=== PATIENT | male | born 1975 | race Two or more races ===

== ENCOUNTER 2017-07-14 07:15 | Emergency (ER) | payer MEDICAID ==
[~2017-07-14] VITALS: Ht 167.6 cm; Wt 68.5 kg
[~2017-07-14 07:15] MED LIST: CEPH500C PO; IBUP800T24 PO; MUPI2OIN2 TOP
[2017-07-14 09:06] VITALS: BP 140/76
== END 2017-07-14 09:59 | disposition home or self-care (01) ==
LOC: ER 07:15
DX: S30.850D Superficial foreign body of lower back and pelvis, subsequent encounter (principal); X58.XXXD Exposure to other specified factors, subsequent encounter
CPT/HCPCS: 73502

== ENCOUNTER 2017-11-18 04:02 | Emergency (ER) | payer MEDICAID ==
[~2017-11-18] VITALS: Ht 172.7 cm; Wt 67.6 kg
[2017-11-18 04:37] VITALS: BP 123/75
== END 2017-11-18 05:27 | disposition left against medical advice (07) ==
LOC: ER 04:13
DX: M79.661 Pain in right lower leg (principal); Z53.21 Procedure and treatment not carried out due to patient leaving prior to being seen by health care provider

== ENCOUNTER 2018-01-10 00:20 | Emergency (ER) | payer MEDICAID ==
[~2018-01-10] VITALS: Ht 172.7 cm; Wt 66.7 kg
[2018-01-10 03:40] VITALS: BP 116/71
[2018-01-10] MEDS ORDERED: HYDROcodone-ACET 10/325MG TAB PO ONE (05:30)
== END 2018-01-10 05:45 | disposition home or self-care (01) ==
LOC: ER 00:20
DX: S30.0XXA Contusion of lower back and pelvis, initial encounter (principal); F17.210 Nicotine dependence, cigarettes, uncomplicated; F12.10 Cannabis abuse, uncomplicated; V29.9XXA Motorcycle rider (driver) (passenger) injured in unspecified traffic accident, initial encounter; Y93.55 Activity, bike riding; Y92.89 Other specified places as the place of occurrence of the external cause; Y99.8 Other external cause status
CPT/HCPCS: 72220

== ENCOUNTER 2019-12-09 01:15 | Emergency (ER) | payer MEDICAID ==
[~2019-12-09] VITALS: Ht 170.2 cm; Wt 67.3 kg
[2019-12-09 05:20] VITALS: BP 109/72
== END 2019-12-09 05:36 | disposition home or self-care (01) ==
LOC: ER 01:16
DX: L24.5 Irritant contact dermatitis due to other chemical products (principal); F17.210 Nicotine dependence, cigarettes, uncomplicated; Z59.0 Homelessness

== ENCOUNTER 2020-11-25 04:14 | Emergency (ER) | payer MEDICAID ==
[~2020-11-25] VITALS: Ht 167.6 cm; Wt 67.6 kg
[~2020-11-25 04:14] MED LIST changes: -IBUP800T24 PO; +IBUP800T27 PO
[2020-11-25 04:31] VITALS: BP 129/85
== END 2020-11-25 09:44 | disposition left against medical advice (07) ==
LOC: ER 04:14
DX: M54.5 Low back pain (principal); Z53.21 Procedure and treatment not carried out due to patient leaving prior to being seen by health care provider

== ENCOUNTER 2021-01-19 05:18 | Emergency (ER) | payer MEDICAID ==
[~2021-01-19] VITALS: Ht 170.2 cm; Wt 65.8 kg
[2021-01-19 07:47] VITALS: BP 103/60
== END 2021-01-19 08:15 | disposition home or self-care (01) ==
LOC: ER 05:18
DX: S90.31XA Contusion of right foot, initial encounter (principal); F17.210 Nicotine dependence, cigarettes, uncomplicated; Z79.1 Long term (current) use of non-steroidal anti-inflammatories (NSAID); Z79.899 Other long term (current) drug therapy; W20.8XXA Other cause of strike by thrown, projected or falling object, initial encounter; Y93.89 Activity, other specified; Y92.89 Other specified places as the place of occurrence of the external cause; Y99.8 Other external cause status
CPT/HCPCS: 73630

== ENCOUNTER 2021-02-20 05:05 | Emergency (ER) | payer MEDICAID ==
[~2021-02-20] VITALS: Ht 170.2 cm; Wt 64.9 kg
[2021-02-20 05:56] VITALS: BP 128/75
[2021-02-20] MEDS ORDERED: KETOROLAC TROMETH 60MG/2ML VIAL IM ONE (06:15)
[2021-02-20] MEDS ORDERED: traMADol HCL 50 MG TAB PO ONE (06:15)
[2021-02-20] MEDS ORDERED: methylPREDNISolone SOD SUCC 125 MG/2 ML VL IM ONE (06:15)
[2021-02-20] MEDS ORDERED: NAPROXEN 500 MG TAB PO ONE (06:15)
== END 2021-02-20 06:26 | disposition home or self-care (01) ==
LOC: ER 05:05
DX: S33.5XXA Sprain of ligaments of lumbar spine, initial encounter (principal); M54.16 Radiculopathy, lumbar region; M79.10 Myalgia, unspecified site; F17.210 Nicotine dependence, cigarettes, uncomplicated; Z79.1 Long term (current) use of non-steroidal anti-inflammatories (NSAID); Z79.2 Long term (current) use of antibiotics; Z79.899 Other long term (current) drug therapy; W01.0XXA Fall on same level from slipping, tripping and stumbling without subsequent striking against object, initial encounter; Y93.89 Activity, other specified; Y92.89 Other specified places as the place of occurrence of the external cause; Y99.8 Other external cause status
CPT/HCPCS: 72100

== ENCOUNTER 2021-03-08 20:01 | Emergency (ER) | payer MEDICAID ==
[~2021-03-08] VITALS: Ht 172.7 cm; Wt 69.9 kg
[2021-03-09 00:18] VITALS: BP 108/66
== END 2021-03-09 00:23 | disposition home or self-care (01) ==
LOC: ER 20:02
DX: R51.9 Headache, unspecified (principal); F17.210 Nicotine dependence, cigarettes, uncomplicated; Z79.899 Other long term (current) drug therapy

== ENCOUNTER 2021-03-25 06:09 | Emergency (ER) | payer MEDICAID ==
[~2021-03-25] VITALS: Ht 170.2 cm; Wt 69.9 kg
[2021-03-25 07:48] LABS: Basophils # (auto) 0 10 ^3/uL (0-0.2); Basophils % (auto) 0.3 % (0.0-2.0); Eosinophils # (auto) 0.2 10 ^3/uL (0-0.8); Eosinophils % (auto) 2.1 % (0.0-7.0); Hematocrit 40.4 % (41.0-53.0); Lymphocytes # (auto) 2.3 10 ^3/uL (0.4-5.4); Lymphocytes % (auto) 29.5 % (10.0-50.0); Mean Corpuscular Hemoglobin 30.7 pg (28.0-32.0); Mean Corpuscular Hgb Conc. 34.5 g/dL (32.0-36.0); Monocytes # (auto) 0.6 10 ^3/uL (0-1.3); Neutrophils # (auto) 4.8 10 ^3/uL (1.6-8.6); Neutrophils % (auto) 60.1 % (37.0-80.0); Nucleated Red Blood Cells % 0.1 %; Red Blood Cells 4.54 10^6/uL (4.5-5.90); Red Cell Distribution Width 14.2 % (11.8-14.3); White Blood Cell 7.9 10^3/uL (4.4-10.8)
[2021-03-25 07:58] LABS: Chloride 108 mmol/L (98-107); Sodium 139 mmol/L (136-145)
[2021-03-25 08:03] LABS: Alanine Aminotransferase 23 U/L (16-61); Albumin 3.7 g/dL (3.4-5.0); Anion Gap 7 (5-15); Aspartate Aminotransferase 19 U/L (15-37); BUN/Creatinine Ratio 11.9; Blood Urea Nitrogen 10 mg/dL (7-18); Calcium 8.8 mg/dL (8.5-10.1); Carbon Dioxide 24 mmol/L (21-32); GFR African American 127 mL/min; GFR Non-African American 105 mL/min; Glucose 89 mg/dL (74-106)
[2021-03-25 08:07] LABS: Alkaline Phosphatase 71 U/L (45-117); Bilirubin, Total 0.8 mg/dL (0.2-1.0); Total Protein 7.3 g/dL (6.4-8.2)
[2021-03-25 10:09] VITALS: BP 136/86
== END 2021-03-25 10:14 | disposition home or self-care (01) ==
LOC: ER 06:09
DX: G89.4 Chronic pain syndrome (principal); F41.9 Anxiety disorder, unspecified; F17.210 Nicotine dependence, cigarettes, uncomplicated; Z79.899 Other long term (current) drug therapy
CPT/HCPCS: 36415; 80053; 84484; 85025

== ENCOUNTER 2021-04-18 07:20 | Emergency (ER) | payer MEDICAID ==
[~2021-04-18] VITALS: Ht 167.6 cm; Wt 68.9 kg
[2021-04-18 08:30] LABS: Urine Bacteria NONE SEEN /hpf (None Seen); Urine Blood 1+ /uL (Negative); Urine Hyaline Cast FEW /lpf (0 - 2); Urine Mucus FEW (None Seen); Urine Specific Gravity 1.018 (1.001-1.035); Urine WBC 1 /hpf (0 - 3)
[2021-04-18 08:48] VITALS: BP 120/88
[2021-04-18] MEDS ORDERED: KETOROLAC TROMETH 60MG/2ML VIAL IM ONE (09:00)
== END 2021-04-18 09:14 | disposition home or self-care (01) ==
LOC: ER 07:20
DX: M54.41 Lumbago with sciatica, right side (principal); R32 Unspecified urinary incontinence; F17.210 Nicotine dependence, cigarettes, uncomplicated; F12.10 Cannabis abuse, uncomplicated
CPT/HCPCS: 81001; 96372; 99283; J1885

== ENCOUNTER 2021-04-26 07:37 | Emergency (ER) | payer MEDICAID ==
[~2021-04-26] VITALS: Ht 170.2 cm; Wt 70.3 kg
[2021-04-26 07:42] VITALS: BP 134/86
== END 2021-04-26 08:33 | disposition home or self-care (01) ==
LOC: ER 07:37
DX: R32 Unspecified urinary incontinence (principal); M54.9 Dorsalgia, unspecified; Z53.21 Procedure and treatment not carried out due to patient leaving prior to being seen by health care provider

== ENCOUNTER 2021-05-28 04:52 | Emergency (ER) | payer MEDICAID ==
[~2021-05-28] VITALS: Ht 170.2 cm; Wt 68.0 kg
[2021-05-28 04:59] VITALS: BP 107/67
== END 2021-05-28 09:21 | disposition left against medical advice (07) ==
LOC: ER 04:52
DX: R35.0 Frequency of micturition (principal); R32 Unspecified urinary incontinence; Z53.21 Procedure and treatment not carried out due to patient leaving prior to being seen by health care provider

== ENCOUNTER 2021-07-24 18:22 | Emergency (ER) | payer MEDICAID ==
[~2021-07-24] VITALS: Ht 175.3 cm; Wt 72.6 kg
[2021-07-24 18:22] VITALS: BP 123/94
[2021-07-24] MEDS ORDERED: ACETAMINOPHEN 325 MG TAB PO ONE (19:00)
[2021-07-24] MEDS ORDERED: ONDANSETRON ODT 4 MG TAB PO ONE (19:15)
== END 2021-07-24 22:17 | disposition home or self-care (01) ==
LOC: ER 18:22
DX: G44.209 Tension-type headache, unspecified, not intractable (principal); F17.210 Nicotine dependence, cigarettes, uncomplicated; F12.10 Cannabis abuse, uncomplicated; F15.10 Other stimulant abuse, uncomplicated
CPT/HCPCS: 70450; 99284; Q0162

== ENCOUNTER 2022-05-19 01:42 | Emergency (ER) | payer MEDICAID ==
[~2022-05-19] VITALS: Ht 170.2 cm; Wt 67.0 kg
[2022-05-19 01:42] VITALS: BP 116/77
== END 2022-05-19 03:39 | disposition left against medical advice (07) ==
LOC: ER 01:42
DX: R51.9 Headache, unspecified (principal); Z53.21 Procedure and treatment not carried out due to patient leaving prior to being seen by health care provider

== ENCOUNTER 2022-05-29 01:04 | Emergency (ER) | payer MEDICAID ==
[~2022-05-29] VITALS: Ht 170.2 cm; Wt 69.4 kg
[2022-05-29 01:23] VITALS: BP 127/82
[2022-05-29] MEDS ORDERED: KETOROLAC TROMETH 60MG/2ML VIAL IM ONE (02:30)
== END 2022-05-29 02:43 | disposition home or self-care (01) ==
LOC: ER 01:07
DX: R51.9 Headache, unspecified (principal); F17.210 Nicotine dependence, cigarettes, uncomplicated; F12.10 Cannabis abuse, uncomplicated; Y08.89XA Assault by other specified means, initial encounter; Y93.89 Activity, other specified; Y92.89 Other specified places as the place of occurrence of the external cause; Y99.8 Other external cause status
CPT/HCPCS: 96372; 99283; J1885

== ENCOUNTER 2022-06-05 12:52 | Emergency (ER) | payer MEDICAID ==
[~2022-06-05] VITALS: Ht 170.2 cm; Wt 68.8 kg
[2022-06-05 14:08] VITALS: BP 135/72
[2022-06-05] MEDS ORDERED: METH500T22 PO (15:04)
[2022-06-05] MEDS ORDERED: IBUP800T27 PO (15:04)
== END 2022-06-05 15:24 | disposition home or self-care (01) ==
LOC: ER 12:52
DX: G89.29 Other chronic pain (principal); S02.2XXD Fracture of nasal bones, subsequent encounter for fracture with routine healing; Z76.0 Encounter for issue of repeat prescription; X58.XXXD Exposure to other specified factors, subsequent encounter

== ENCOUNTER 2022-12-11 09:20 | Emergency (ER) | payer MEDICAID ==
[~2022-12-11] VITALS: Ht 172.7 cm; Wt 65.8 kg
[~2022-12-11 09:20] MED LIST changes: +IBUP-1456 PO; -IBUP800T27 PO; +METH-1181 PO
[2022-12-11 09:39] VITALS: BP 124/81
== END 2022-12-11 12:44 | disposition left against medical advice (07) ==
LOC: ER 09:20
DX: R10.9 Unspecified abdominal pain (principal); Z53.21 Procedure and treatment not carried out due to patient leaving prior to being seen by health care provider; W22.8XXA Striking against or struck by other objects, initial encounter; Y93.89 Activity, other specified; Y92.89 Other specified places as the place of occurrence of the external cause; Y99.8 Other external cause status

== ENCOUNTER 2022-12-20 10:23 | Emergency (ER) | payer MEDICAID ==
[~2022-12-20] VITALS: Ht 167.6 cm; Wt 65.4 kg
[2022-12-20 10:23] VITALS: BP 117/72
[2022-12-20 11:48] LABS: Urine Bacteria FEW /hpf (None Seen); Urine Blood TRACE /uL (Negative); Urine Mucus FEW (None Seen); Urine Specific Gravity 1.033 (1.001-1.035); Urine Sperm PRESENT /hpf (None Seen); Urine WBC 1 /hpf (0 - 3)
[2022-12-20 12:04] LABS: Alcohol, Urine < 3.0 mg/dL (0-10); Amphetamine Screen, Urine POSITIVE (NEGATIVE); Barbiturate Scree,Urine NEGATIVE (NEGATIVE); Benzodiazephine Screen, Urine NEGATIVE (NEGATIVE); Cannabinoid Screen, Urine POSITIVE (NEGATIVE); Cocaine Screen, Urine NEGATIVE (NEGATIVE); Opiate Scree,Urine NEGATIVE (NEGATIVE); Phencyclidine Screen, Urine NEGATIVE (NEGATIVE)
== END 2022-12-20 12:03 | disposition home or self-care (01) ==
LOC: ER 10:23
DX: K59.00 Constipation, unspecified (principal); K76.89 Other specified diseases of liver; F41.9 Anxiety disorder, unspecified; F32.9 Major depressive disorder, single episode, unspecified; F17.210 Nicotine dependence, cigarettes, uncomplicated; F12.90 Cannabis use, unspecified, uncomplicated; Z79.899 Other long term (current) drug therapy
CPT/HCPCS: 74176; 80307; 81001

== ENCOUNTER → 2022-12-24 | Emergency (ER) | payer MEDICAID ==
[~2022-12-24] VITALS: Ht 167.6 cm; Wt 67.4 kg
[2022-12-24 20:38] VITALS: BP 119/81; PULSE 92; RESP 18; O2SAT 100
== END | disposition left against medical advice (07) ==
LOC: ER 20:35
DX: R10.32 Left lower quadrant pain (principal); R11.2 Nausea with vomiting, unspecified; F41.9 Anxiety disorder, unspecified; F32.9 Major depressive disorder, single episode, unspecified; F17.210 Nicotine dependence, cigarettes, uncomplicated; F12.10 Cannabis abuse, uncomplicated

== ENCOUNTER 2022-12-31 12:05 | Emergency (ER) | payer MEDICAID ==
[~2022-12-31] VITALS: Ht 170.2 cm; Wt 67.1 kg
[2022-12-31 12:51] VITALS: BP 121/74; PULSE 71; RESP 18; TEMP 97.9; O2SAT 98
[2022-12-31] MEDS ORDERED: IBUP1TAB5 PO (14:01)
[2022-12-31] MEDS ORDERED: ZOFR4T PO ×2 (14:01→14:03)
[2022-12-31] MEDS ORDERED: IBU600T PO (14:03)
== END 2022-12-31 14:25 | disposition home or self-care (01) ==
LOC: ER 12:05
DX: R51.9 Headache, unspecified (principal); T73.0XXA Starvation, initial encounter; F41.9 Anxiety disorder, unspecified; F32.9 Major depressive disorder, single episode, unspecified; F17.210 Nicotine dependence, cigarettes, uncomplicated; F15.90 Other stimulant use, unspecified, uncomplicated; X58.XXXA Exposure to other specified factors, initial encounter
CPT/HCPCS: 70450

== ENCOUNTER 2023-01-18 14:42 | Emergency (ER) | payer MEDICAID ==
[~2023-01-18] VITALS: Ht 167.6 cm; Wt 65.3 kg
[~2023-01-18 14:42] MED LIST changes: +IBU600T PO; +IBUP1TAB5 PO; +ZOFR4T PO
[2023-01-18 16:03] VITALS: BP 120/74; PULSE 119; RESP 18; TEMP 98.1; O2SAT 97
== END 2023-01-18 15:54 | disposition left against medical advice (07) ==
LOC: ER 14:42
DX: M79.671 Pain in right foot (principal); Z53.21 Procedure and treatment not carried out due to patient leaving prior to being seen by health care provider

== ENCOUNTER 2023-02-01 00:45 | Emergency (ER) | payer MEDICAID ==
[~2023-02-01 00:45] MED LIST changes: +IBUP-1454 PO
[2023-02-01] MEDS ORDERED: IBUP1TAB5 PO (02:20)
[2023-02-01] MEDS ORDERED: IBUPROFEN 600 MG TAB PO ONE (02:30)
[2023-02-01 02:39] VITALS: BP 110/70; PULSE 99; RESP 20; TEMP 97.4; O2SAT 98
== END 2023-02-01 02:52 | disposition home or self-care (01) ==
LOC: ER 00:45
DX: S92.314A Nondisplaced fracture of first metatarsal bone, right foot, initial encounter for closed fracture (principal); F17.210 Nicotine dependence, cigarettes, uncomplicated; F12.10 Cannabis abuse, uncomplicated; Z59.00 Homelessness unspecified; Y04.2XXA Assault by strike against or bumped into by another person, initial encounter; Y93.89 Activity, other specified; Y92.89 Other specified places as the place of occurrence of the external cause; Y99.8 Other external cause status
CPT/HCPCS: 73630

== ENCOUNTER 2023-02-09 07:09 | Emergency (ER) | payer MEDICAID ==
[~2023-02-09] VITALS: Ht 170.2 cm; Wt 66.0 kg
[2023-02-09 07:09] VITALS: BP 137/99; PULSE 99; RESP 19; O2SAT 100
[2023-02-10] MEDS ORDERED: CLIN300C70 PO (07:19)
[2023-02-10] MEDS ORDERED: NAPR-1334 PO (07:19)
== END 2023-02-09 07:36 | disposition left against medical advice (07) ==
LOC: ER 07:09
DX: F99 Mental disorder, not otherwise specified (principal); Z53.21 Procedure and treatment not carried out due to patient leaving prior to being seen by health care provider

== ENCOUNTER 2023-02-10 03:44 | Emergency (ER) | payer MEDICAID ==
[~2023-02-10] VITALS: Ht 170.2 cm; Wt 61.0 kg
[2023-02-10 03:44] VITALS: BP 128/79; PULSE 86; RESP 18; O2SAT 99
[2023-02-10] MEDS ORDERED: TETANUS-DIPTH-ACEL PERTUSSIS 0.5ML SYR Tdap IM ONE (07:15)
[2023-02-10] MEDS ORDERED: CLIN300C70 PO (07:19)
[2023-02-10] MEDS ORDERED: NAPR-1334 PO (07:19)
== END 2023-02-10 08:37 | disposition left against medical advice (07) ==
LOC: ER 03:44
DX: S06.0X0A Concussion without loss of consciousness, initial encounter (principal); S00.33XA Contusion of nose, initial encounter; F17.210 Nicotine dependence, cigarettes, uncomplicated; F12.10 Cannabis abuse, uncomplicated; Z59.00 Homelessness unspecified; Y08.89XA Assault by other specified means, initial encounter; Y93.89 Activity, other specified; Y92.89 Other specified places as the place of occurrence of the external cause; Y99.8 Other external cause status
CPT/HCPCS: 70450; 70486; 90715

== ENCOUNTER 2023-02-10 23:21 | Emergency (ER) | payer MEDICAID ==
[~2023-02-10] VITALS: Ht 170.2 cm; Wt 61.4 kg
[~2023-02-10 23:21] MED LIST changes: +CLIN300C70 PO; +NAPR-1334 PO
[2023-02-11 00:35] VITALS: BP 116/84; PULSE 83; RESP 18; O2SAT 96
== END 2023-02-11 04:14 | disposition left against medical advice (07) ==
LOC: ER 23:24
DX: R11.0 Nausea (principal); H53.8 Other visual disturbances; Z53.21 Procedure and treatment not carried out due to patient leaving prior to being seen by health care provider; W22.8XXA Striking against or struck by other objects, initial encounter; Y93.89 Activity, other specified; Y92.89 Other specified places as the place of occurrence of the external cause; Y99.8 Other external cause status

== ENCOUNTER 2023-02-17 15:20 | Emergency (ER) | payer MEDICAID ==
[~2023-02-17] VITALS: Ht 167.6 cm; Wt 61.4 kg
[2023-02-17 15:53] VITALS: BP 128/77; PULSE 110; RESP 20; O2SAT 98
== END 2023-02-17 20:21 | disposition left against medical advice (07) ==
LOC: ER 15:20
DX: R10.2 Pelvic and perineal pain (principal); Z53.21 Procedure and treatment not carried out due to patient leaving prior to being seen by health care provider

== ENCOUNTER 2023-03-03 18:29 | Emergency (ER) | payer MEDICAID ==
[~2023-03-03] VITALS: Ht 170.2 cm; Wt 67.8 kg
[2023-03-03 18:40] VITALS: BP 113/87; PULSE 105; RESP 18; O2SAT 97
== END 2023-03-04 22:23 | disposition left against medical advice (07) ==
LOC: ER 18:29
DX: R51.9 Headache, unspecified (principal); R11.0 Nausea; Z53.21 Procedure and treatment not carried out due to patient leaving prior to being seen by health care provider; Y08.89XA Assault by other specified means, initial encounter; Y93.89 Activity, other specified; Y92.89 Other specified places as the place of occurrence of the external cause; Y99.8 Other external cause status

== ENCOUNTER 2023-03-05 01:30 | Emergency (ER) | payer MEDICAID ==
[~2023-03-05] VITALS: Ht 170.2 cm; Wt 68.7 kg
[2023-03-05 01:36] VITALS: BP 126/78; PULSE 95; RESP 16; O2SAT 99
[2023-03-05] MEDS ORDERED: KETOROLAC TROMETH 60MG/2ML VIAL IM ONE (03:45)
== END 2023-03-05 02:53 | disposition left against medical advice (07) ==
LOC: ER 01:32
DX: M79.18 Myalgia, other site (principal); F29 Unspecified psychosis not due to a substance or known physiological condition; R10.12 Left upper quadrant pain; F17.210 Nicotine dependence, cigarettes, uncomplicated; F12.10 Cannabis abuse, uncomplicated; F14.10 Cocaine abuse, uncomplicated; Z59.00 Homelessness unspecified

== ENCOUNTER 2023-03-24 03:30 | Emergency (ER) | payer MEDICAID ==
[~2023-03-24] VITALS: Ht 170.2 cm; Wt 64.6 kg
[2023-03-24 04:10] VITALS: BP 124/80; PULSE 88; RESP 20; TEMP 98.3
[2023-03-24] MEDS ORDERED: IBUP-1454 PO (06:30)
[2023-03-24] MEDS ORDERED: TRAM50TA2 PO (06:30)
[2023-03-24] MEDS ORDERED: KETOROLAC TROMETH 60MG/2ML VIAL IM ONE (06:30)
[2023-03-24 07:06] VITALS: O2SAT 99
== END 2023-03-24 07:23 | disposition home or self-care (01) ==
LOC: ER 03:30
DX: S40.011A Contusion of right shoulder, initial encounter (principal); S20.212A Contusion of left front wall of thorax, initial encounter; F17.210 Nicotine dependence, cigarettes, uncomplicated; Z59.00 Homelessness unspecified; Z79.2 Long term (current) use of antibiotics; Z79.1 Long term (current) use of non-steroidal anti-inflammatories (NSAID); Z79.899 Other long term (current) drug therapy; W18.39XA Other fall on same level, initial encounter; Y93.89 Activity, other specified; Y92.89 Other specified places as the place of occurrence of the external cause; Y99.8 Other external cause status
CPT/HCPCS: 71101; 73030; 96372; 99284; J1885

== ENCOUNTER 2023-03-28 10:19 | Emergency (ER) | payer MEDICAID ==
[~2023-03-28] VITALS: Ht 170.2 cm; Wt 64.5 kg
[~2023-03-28 10:19] MED LIST changes: +TRAM50TA2 PO
[2023-03-28 10:56] VITALS: BP 111/78; PULSE 98; RESP 20; O2SAT 97
== END 2023-03-28 13:22 | disposition left against medical advice (07) ==
LOC: ER 10:19
DX: R10.84 Generalized abdominal pain (principal); R11.2 Nausea with vomiting, unspecified; F17.210 Nicotine dependence, cigarettes, uncomplicated; F12.10 Cannabis abuse, uncomplicated; F14.10 Cocaine abuse, uncomplicated; Z59.00 Homelessness unspecified

== ENCOUNTER 2023-04-12 10:05 | Emergency (ER) | payer MEDICAID ==
[~2023-04-12] VITALS: Ht 170.2 cm; Wt 66.6 kg
[2023-04-12 10:16] VITALS: BP 117/81; PULSE 118; RESP 16; O2SAT 99
== END 2023-04-12 16:14 | disposition left against medical advice (07) ==
LOC: ER 10:05
DX: R07.81 Pleurodynia (principal); Z53.21 Procedure and treatment not carried out due to patient leaving prior to being seen by health care provider

== ENCOUNTER 2023-07-21 23:23 | Emergency (ER) | payer MEDICAID ==
[~2023-07-21] VITALS: Ht 170.2 cm; Wt 76.8 kg
[2023-07-21 23:35] VITALS: BP 134/85; PULSE 100; RESP 18; O2SAT 92
== END 2023-07-22 00:18 | disposition left against medical advice (07) ==
LOC: ER 23:23
DX: K62.89 Other specified diseases of anus and rectum (principal); Z53.21 Procedure and treatment not carried out due to patient leaving prior to being seen by health care provider

== ENCOUNTER 2023-07-31 02:43 | Emergency (ER) | payer MEDICAID ==
[~2023-07-31] VITALS: Ht 170.2 cm; Wt 70.6 kg
[2023-07-31 03:31] VITALS: BP 122/88; PULSE 97; RESP 18; O2SAT 98
== END 2023-07-31 04:35 | disposition left against medical advice (07) ==
LOC: ER 02:43
DX: M79.652 Pain in left thigh (principal); M79.651 Pain in right thigh; F17.210 Nicotine dependence, cigarettes, uncomplicated; Z59.00 Homelessness unspecified

== ENCOUNTER 2023-08-07 01:14 | Emergency (ER) | payer MEDICAID ==
[~2023-08-07] VITALS: Ht 170.2 cm; Wt 70.0 kg
[2023-08-07] MEDS ORDERED: IBUP1TAB5 PO (02:23)
[2023-08-07 02:29] VITALS: BP 133/86; PULSE 102; RESP 16; TEMP 97.3; O2SAT 95
== END 2023-08-07 02:15 | disposition home or self-care (01) ==
LOC: ER 01:14
DX: S00.03XA Contusion of scalp, initial encounter (principal); F17.210 Nicotine dependence, cigarettes, uncomplicated; Z59.00 Homelessness unspecified; W18.09XA Striking against other object with subsequent fall, initial encounter; Y93.89 Activity, other specified; Y92.89 Other specified places as the place of occurrence of the external cause; Y99.8 Other external cause status
CPT/HCPCS: 70450

== ENCOUNTER 2023-08-10 01:15 | Emergency (ER) | payer MEDICAID ==
[~2023-08-10] VITALS: Ht 167.6 cm; Wt 70.0 kg
[2023-08-10 01:17] VITALS: BP 129/85; PULSE 105; RESP 18; TEMP 98.4
[2023-08-10 02:48] VITALS: O2SAT 100
[2023-08-10] MEDS: IBUPROFEN 400 MG TAB PO ONE (02:56)
== END 2023-08-10 03:01 | disposition home or self-care (01) ==
LOC: ER 01:15
DX: R51.9 Headache, unspecified (principal); F17.210 Nicotine dependence, cigarettes, uncomplicated; Z59.00 Homelessness unspecified

== ENCOUNTER 2023-08-11 00:35 | Emergency (ER) | payer MEDICAID | END 2023-08-11 02:01 | disposition left against medical advice (07) | LOC: ER 00:35 | DX: R10.9 Unspecified abdominal pain (principal); Z53.21 Procedure and treatment not carried out due to patient leaving prior to being seen by health care provider ==

== ENCOUNTER 2023-08-19 03:31 | Emergency (ER) | payer MEDICAID | END 2023-08-19 03:53 | disposition left against medical advice (07) | LOC: ER 03:31 | DX: M79.605 Pain in left leg (principal); Z53.21 Procedure and treatment not carried out due to patient leaving prior to being seen by health care provider ==

== ENCOUNTER 2024-07-11 04:06 | Emergency (ER) | payer MEDICAID ==
[~2024-07-11] VITALS: Ht 170.2 cm; Wt 73.3 kg
[~2024-07-11 04:06] MED LIST changes: +CLIN1CAP70 PO; -CLIN300C70 PO; -NAPR-1334 PO; +NAPR-1335 PO
[2024-07-11 04:15] VITALS: BP 111/78; PULSE 118; RESP 18; O2SAT 96
== END 2024-07-11 07:48 | disposition left against medical advice (07) ==
LOC: ER 04:06
DX: Z00.00 Encounter for general adult medical examination without abnormal findings (principal); Z53.21 Procedure and treatment not carried out due to patient leaving prior to being seen by health care provider

== ENCOUNTER 2024-09-24 00:15 | Emergency (ER) | payer MEDICAID ==
[~2024-09-24] VITALS: Ht 172.7 cm; Wt 74.8 kg
--- NOTE | 2024-09-24 01:16 | DVH ---
CLINICAL INDICATION: TECHNIQUE: XY FACIAL BONES COMPLETE Comparison: None FINDINGS/IMPRESSION: : There is no evidence of acute fracture or dislocation. Opacification and air-fluid level within the right maxillary sinus. Remaining visualized paranasal si nuses are grossly clear. Soft tissues are unremarkable.
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
[2024-09-24] MEDS ORDERED: IBUP-1455 PO (01:31)
[2024-09-24] MEDS: IBUPROFEN 600 MG TAB PO ONE (01:56)
[2024-09-24 02:00] VITALS: BP 121/88; PULSE 97; RESP 16; TEMP 97.9; O2SAT 100
== END 2024-09-24 02:29 | disposition home or self-care (01) ==
LOC: ER 00:15
DX: S05.11XA Contusion of eyeball and orbital tissues, right eye, initial encounter (principal); F17.210 Nicotine dependence, cigarettes, uncomplicated; X58.XXXA Exposure to other specified factors, initial encounter; Y93.89 Activity, other specified; Y92.89 Other specified places as the place of occurrence of the external cause; Y99.8 Other external cause status
CPT/HCPCS: 70140